=== PATIENT | male | born 1975 | race Caucasian/White ===

== ENCOUNTER 2023-08-20 20:00 | Outpatient (CLI) | payer OTHER, SELFPAY | END 2023-08-20 20:01 | disposition home or self-care (01) | LOC: SLEEP 08-21 06:51 | PROVIDERS: Family Provider Family Medicine; Visit Provider Family Medicine | DX: G47.33 Obstructive sleep apnea (adult) (pediatric) (principal) | CPT/HCPCS: 95811 ==